=== PATIENT | female | born 1995 | race Caucasian/White ===

== ENCOUNTER 2019-02-01 12:37 | Emergency (ER) | payer OTHER ==
[~2019-02-01] VITALS: Ht 175.3 cm; Wt 90.7 kg
[2019-02-01] MEDS ORDERED: IBUP-1986 PO (13:25)
[2019-02-01] MEDS ORDERED: ORPH100T2 PO (13:25)
[2019-02-01] MEDS ORDERED: orphenadrine citrate 60mg/2ml inj. IM ONE (13:25)
[2019-02-01] MEDS ORDERED: HYDR-4353 PO (13:25)
[2019-02-01] MEDS ORDERED: ketorolac trometh inj. 60 MG/2 ML VIAL IM ONE (13:25)
[2019-02-01 13:50] VITALS: BP 135/78
== END 2019-02-01 13:53 | disposition home or self-care (01) ==
LOC: ER 12:38
DX: S16.1XXA Strain of muscle, fascia and tendon at neck level, initial encounter (principal); S09.8XXA Other specified injuries of head, initial encounter; Z88.5 Allergy status to narcotic agent; Z79.899 Other long term (current) drug therapy; Z98.890 Other specified postprocedural states; W18.09XA Striking against other object with subsequent fall, initial encounter; Y93.89 Activity, other specified; Y92.69 Other specified industrial and construction area as the place of occurrence of the external cause; Y99.8 Other external cause status
CPT/HCPCS: 72040; 96372; 99283; J1885; J2360